=== PATIENT | female | born 1940 | race Two or more races ===

== ENCOUNTER 2017-12-09 09:08 | Day surgery (SDC) | payer OTHER ==
[~2017-12-09] VITALS: Ht 154.9 cm; Wt 52.6 kg
[~2017-12-09 09:08] MED LIST: ALBUAER3 IN; AMLO10TA2 PO; ASPI81TA27 PO; BUP75T PO; CLOP75TA28 PO; DOXY100C2 PO; HAL1T PO; LIDOCAINE HCL 2 %PF INJ 10ML AMP IJ ONE; LOSA50TA6 PO; METO-159 PO; MOME200A INH; MONT10TA23 PO
[2017-12-09] MEDS ORDERED: VANCOMYCIN 1GM/250ML 250 ML IV ONE (09:45)
[2017-12-09] MEDS ORDERED: MIDAZOLAM HCL 1MG/1ML-2 ML VIAL ONE (10:23)
[2017-12-09] MEDS ORDERED: fentaNYL CITRATE 100 MCG/2 ML VL ONE (10:23)
[2017-12-09] MEDS ORDERED: VANCOMYCIN HCL 1000 MG VL ONE (10:23)
[2017-12-09] MEDS ORDERED: BACITRACIN INJ 50000 UNIT VIAL ONE (10:24)
[2017-12-09] MEDS ORDERED: VANCOMYCIN 1GM/250ML 0 ML IV ONE (10:24)
[2017-12-09] MEDS ORDERED: DOXYCYCLINE 100 MG TAB/CAP PO ONE (11:30)
[2017-12-09] MEDS ORDERED: DOXYCYCLINE 100 MG TAB/CAP ONE (12:10)
== END 2017-12-09 12:30 | disposition home or self-care (01) ==
LOC: CATH 09:08
PROVIDERS: ATTEND Specialist
DX: I42.9 Cardiomyopathy, unspecified (principal); I50.9 Heart failure, unspecified; Z88.0 Allergy status to penicillin; I10 Essential (primary) hypertension; I25.2 Old myocardial infarction; J45.909 Unspecified asthma, uncomplicated
CPT/HCPCS: 33264; C1882; C1894; J1644; J2250; J3010; J3370; J7030; 99152

== ENCOUNTER 2018-05-09 18:34 | Emergency (ER) | payer OTHER ==
[~2018-05-09] VITALS: Ht 152.4 cm; Wt 54.4 kg
[~2018-05-09 18:34] MED LIST changes: -LIDOCAINE HCL 2 %PF INJ 10ML AMP IJ ONE
[2018-05-09] MEDS ORDERED: LET TOPICAL SOLN 5 ML TOP ONE (19:15)
[2018-05-09 19:32] VITALS: BP 157/69
[2018-05-09] MEDS ORDERED: LIDOCAINE W/ EPINEPHRINE 2% INJ 20ML VIAL ONE (19:43)
[2018-05-09] MEDS ORDERED: LIDOCAINE W/ EPINEPHRINE 2% INJ 20ML VIAL IJ ONE (20:15)
== END 2018-05-09 20:21 | disposition home or self-care (01) ==
LOC: ER 18:34
DX: S01.81XA Laceration without foreign body of other part of head, initial encounter (principal); L76.22 Postprocedural hemorrhage of skin and subcutaneous tissue following other procedure; Z88.0 Allergy status to penicillin; X58.XXXA Exposure to other specified factors, initial encounter; Y93.89 Activity, other specified; Y99.8 Other external cause status; Y92.89 Other specified places as the place of occurrence of the external cause
CPT/HCPCS: 12013; 99283; J3490

== ENCOUNTER 2019-03-27 10:36 | Inpatient (IN) | payer OTHER ==
[~2019-03-27] VITALS: Ht 154.9 cm; Wt 51.2 kg
[~2019-03-27 10:36] MED LIST changes: +AMLO10TA12 PO; -AMLO10TA2 PO; +LOSA-46 PO; -LOSA50TA6 PO
[2019-03-27 11:11] LABS: Basophils # (auto) 0.1 uL; Basophils % (auto) 0.9 % (0.0-2.0); Eosinophils # (auto) 0.2 uL; Eosinophils % (auto) 1.5 % (0.0-7.0); Hematocrit 40.8 % (36.0-46.0); Hemoglobin 13.8 g/dL (12.2-16.2); Lymphocytes # (auto) 1.6 uL; Lymphocytes % (auto) 14.8 % (10.0-50.0); Mean Corpuscular Hemoglobin 31.7 pg (28.0-32.0); Mean Corpuscular Hgb Conc. 33.9 g/dL (32.0-36.0); Mean Corpuscular Volume 93.6 fL (80.0-100.0); Monocytes # (auto) 0.9 uL; Neutrophils # (auto) 8.2 uL; Neutrophils % (auto) 74.8 % (37.0-80.0); Platelet Count (auto) 338 10^3/uL (140-450); Red Blood Cells 4.36 10^6/uL (4.0-5.20); Red Cell Distribution Width 13.4 % (11.8-14.3)
[2019-03-27] MEDS ORDERED: IPRATROPIUM BROM 0.5 MG/2.5ML INH SOL NEB ONE (11:30)
[2019-03-27] MEDS ORDERED: methylPREDNISolone SOD SUCC 125 MG/2 ML VL IV ONE (11:30)
[2019-03-27] MEDS ORDERED: ALBUTEROL SULF 2.5 MG/0.5ML(0.5%) NEB SOLN NEB ONE (11:30)
[2019-03-27 11:39] LABS: Alanine Aminotransferase 23 U/L (13-56); Albumin 3.2 g/dL (3.4-5.0); Anion Gap 7 (5-15); Aspartate Aminotransferase 17 U/L (15-37); Blood Urea Nitrogen 13 mg/dL (7-18); Calcium 9.2 mg/dL (8.5-10.1); Carbon Dioxide 26 mmol/L (21-32); Chloride 108 mmol/L (98-107); Glucose 118 mg/dL (74-106); Magnesium 2.3 mg/dL (1.6-2.6); Potassium 3.6 mmol/L (3.5-5.1); Sodium 141 mmol/L (136-145)
[2019-03-27 11:43] LABS: Alkaline Phosphatase 102 U/L (45-117); BUN/Creatinine Ratio 14.8; Bilirubin, Total 0.5 mg/dL (0.2-1.0); GFR African American 80 mL/min; GFR Non-African American 66 mL/min; Total Protein 7.6 g/dL (6.4-8.2)
[2019-03-27 15:55] LABS: INR 1.01 (0.9-1.15)
[2019-03-27] MEDS ORDERED: MORPHINE SULF INJ 2 MG/ML SYRINGE 1ML IV PRN ×2 (16:15)
[2019-03-27] MEDS ORDERED: ACETAMINOPHEN 325 MG TAB PO PRN (16:15)
[2019-03-27] MEDS ORDERED: NITROGLYCERIN 0.4 MG SL TAB SL PRN (16:15)
[2019-03-27] MEDS ORDERED: HYDROcodone-ACET 5/325MG TAB PO PRN (16:15)
[2019-03-27] MEDS ORDERED: ONDANSETRON HCL 4 MG/2 ML VIAL IV PRN (16:15)
[2019-03-27] MEDS ORDERED: ENOXAPARIN SOD 40 MG/0.4 ML SYRINGE SC ONE (17:30)
--- NOTE | 2019-03-27 20:39 | NUR ---
Opening shift note Patient in bed sleeping with eyes closed, non responsive to verbal stimuli. Patient's respiration even and unlabored, no non verbal cues to pain and discomfort. Will continue to monitor.
[2019-03-27 22:00] VITALS: BP 126/72
[2019-03-28 05:00] VITALS: BP 110/64
[2019-03-28 09:00] VITALS: BP 128/78
[2019-03-28] MEDS ORDERED: ENOXAPARIN SOD 40 MG/0.4 ML SYRINGE SC SCH (10:00)
[2019-03-28 13:00] VITALS: BP 119/71
--- NOTE | 2019-03-28 14:08 | NUR ---
I called [facility] [phone] and spoke with Dilma, she did receive the fax, her director is reviewing the clinical information, Dilma will give me a call back. I spoke with nurse Kandi who let me know that familly is requesting [facility]. Addendum: 03/28/19 at 1419 by Julia Lauren RN I spoke with [employer] Project Engineer Melissa who is aware that patient is requesting [facility], she will give auth once we have an accepting facility.
--- NOTE | 2019-03-28 15:40 | NUR ---
Patient will be going to [facility] room 304 bed 2-Dr Huma Perez accepting-nurse to call report to [phone]-CHOICE auth number for [employer] is [id number]-[email or web address] number for [employer] transportation [id number](phone number [phone]; fax number [phone])-[facility] transport to pickling operator patient at 1900-I called nurse Kandi and gave her this information as well as asking her to fax face sheet with auth number on it to [facility] per their request.
[2019-03-28 17:52] VITALS: BP 153/70
== END 2019-03-28 19:30 | DRG 536 ==
LOC: ER 10:38 → TELE 10:39 → TELE-WESTW 17:48
PROVIDERS: ADMIT Internal Medicine; ATTEND Internal Medicine
DX: S72.111A Displaced fracture of greater trochanter of right femur, initial encounter for closed fracture (principal); E44.1 Mild protein-calorie malnutrition; M16.11 Unilateral primary osteoarthritis, right hip; R29.6 Repeated falls; Z68.21 Body mass index [BMI] 21.0-21.9, adult; G30.9 Alzheimer's disease, unspecified; F02.80 Dementia in other diseases classified elsewhere, unspecified severity, without behavioral disturbance, psychotic disturbance, mood disturbance, and anxiety; I10 Essential (primary) hypertension
CPT/HCPCS: 36415; 71045; 73502; 73700; 80053; 83735; 84484; 85025; 85610; 86850; 86900; 86901; 93005; 93306; 94640; 96374; G0378

== ENCOUNTER 2020-04-17 12:59 | Inpatient (IN) | payer OTHER ==
[~2020-04-17] VITALS: Ht 154.9 cm; Wt 46.2 kg
[~2020-04-17 12:59] MED LIST changes: -AMLO10TA12 PO; +AMLO10TA13 PO; +ASPI-543 PO; -ASPI81TA27 PO; -LOSA-46 PO; +LOSA-69 PO
[2020-04-17] MEDS ORDERED: SODIUM CHLORIDE 0.9% 1,000 ML IVB ONE (13:29)
[2020-04-17 14:02] LABS: Basophils # (auto) 0.1 10 ^3/uL (0-0.2); Basophils % (auto) 0.6 % (0.0-2.0); Eosinophils # (auto) 0 10 ^3/uL (0-0.8); Eosinophils % (auto) 0.2 % (0.0-7.0); Hematocrit 41.1 % (36.0-46.0); Hemoglobin 13.7 g/dL (12.2-16.2); Lymphocytes # (auto) 1.2 10 ^3/uL (0.4-5.4); Lymphocytes % (auto) 9.8 % (10.0-50.0); Mean Corpuscular Hemoglobin 31.3 pg (28.0-32.0); Mean Corpuscular Hgb Conc. 33.4 g/dL (32.0-36.0); Mean Corpuscular Volume 93.5 fL (80.0-100.0); Monocytes % (auto) 8.8 % (0.0-12.0); Neutrophils # (auto) 9.6 10 ^3/uL (1.6-8.6); Neutrophils % (auto) 80.6 % (37.0-80.0); Nucleated Red Blood Cells % 0.1 %; Platelet Count (auto) 275 10^3/uL (140-450); Red Cell Distribution Width 13.6 % (11.8-14.3); White Blood Cell 11.9 10^3/uL (4.4-10.8)
[2020-04-17 14:17] LABS: INR 1.07 (0.9-1.15); Partial Thromboplastin Time 27.9 sec (23.64-32.05)
[2020-04-17 14:18] LABS: Albumin 2.8 g/dL (3.4-5.0); Calcium 7.9 mg/dL (8.5-10.1); Magnesium 1.8 mg/dL (1.6-2.6)
[2020-04-17 14:24] LABS: BUN/Creatinine Ratio 21.9; Bilirubin, Total 0.8 mg/dL (0.2-1.0); Total Protein 7.3 g/dL (6.4-8.2)
[2020-04-17 14:36] LABS: Potassium 2.7 mmol/L (3.5-5.1)
[2020-04-17] MEDS ORDERED: POTASSIUM CHL 20 Meq TABLET PO ONE (15:00)
[2020-04-17] MEDS ORDERED: MORPHINE SULF INJ 2 MG/ML SYRINGE 1ML IV ONE (15:00)
[2020-04-17] MEDS ORDERED: SODIUM CHLORIDE 0.9% 1,000 ML IV ONE (15:00)
[2020-04-17] MEDS ORDERED: ONDANSETRON HCL 4 MG/2 ML VIAL IV ONE (15:00)
[2020-04-17] MEDS ORDERED: MORPHINE SULF INJ 2 MG/ML SYRINGE 1ML IV PRN ×2 (16:00)
[2020-04-17] MEDS ORDERED: ACETAMINOPHEN 500 MG TAB PO PRN (16:00)
[2020-04-17] MEDS ORDERED: HYDROcodone-ACET 5/325MG TAB PO PRN (16:00)
[2020-04-17] MEDS ORDERED: SOD CHL 0.45% WITH 20MEQ KCL 1,000 ML IV ONE (16:00)
[2020-04-17] MEDS ORDERED: NITROGLYCERIN 0.4 MG SL TAB SL PRN (16:00)
[2020-04-17 16:04] LABS: Urine Bacteria NONE SEEN /hpf (None Seen); Urine Blood Negative /uL (Negative); Urine Hyaline Cast FEW /lpf (0 - 2); Urine Specific Gravity 1.009 (1.001-1.035); Urine WBC 1 /hpf (0 - 5)
[2020-04-17] MEDS ORDERED: HALOPERIDOL 1 MG TAB PO PRN (16:15)
[2020-04-17] MEDS ORDERED: ALBUTEROL SULF 2.5 MG/0.5ML(0.5%) NEB SOLN NEB PRN (16:15)
[2020-04-17 16:29] VITALS: BP 131/56
--- NOTE | 2020-04-17 18:40 | NUR ---
Respiratory note: PT SEEN AND ASSESSED FOR PRN MED NEB TX AT 1840. TREATMENT NOT INDICATED AT THIS TIME. PT NOT DISPLAYING ANY SIGNS OF DISTRESS. HR 102 RR 17 94% ON 2L NASAL CANNULA.
[2020-04-17] MEDS ORDERED: ETOMIDATE (2MG/ML) 20ML VIAL IV ONE (20:00)
[2020-04-17] MEDS: MOMETASONE FUROATE FORMOTEROL PO SCH (22:00)
--- NOTE | 2020-04-17 23:30 | NUR ---
Telemetry admit from ER BESSSTARLA admitted to Telemetry unit after SBAR received. Patient oriented to Nupur Salter RN primary RN, unit, room, bed, and unit policies regarding patient care and visiting hours. Patient now on continuous telemetry monitoring, tele box # [] and telemetry reading on arrival to unit is SR. Patient placed on bedside oxygen at 2 Lpm/NC, weighed by bedscale and encouraged to call if they need something. Bed in lowest position, bed alarm on, call light within reach. All questions and concerns addressed, patient verbalized understanding, will continue to monitor Note: []
[2020-04-18] VITALS (8 sets, daily range): BP systolic 120–141; BP diastolic 67–70
[2020-04-18] MEDS: MONTELUKAST SODIUM 10 MG TAB PO SCH ×2 (00:10→22:13)
--- NOTE | 2020-04-18 00:45 | NUR ---
Received a call from [place], patient's covid result is positive. NIKOLAI Tompkins made aware. Will page hospitalist
--- NOTE | 2020-04-18 01:14 | NUR ---
Transferred patient to Covid Unit Rm. 232 and gave report to RAMAN Malagon
--- NOTE | 2020-04-18 01:15 | NUR ---
arrived to room 246B via hospital bed. pt A&O4. respirations even nonlabored on 2Lnc.
--- NOTE | 2020-04-18 02:11 | NUR ---
Paged hospitalist, awaiting call back
--- NOTE | 2020-04-18 02:26 | NUR ---
Hospitalist Hui called back and updated on patient's Covid positive result. Per MD, to put the patient on Covid protocol. Called Covid unit and left a message to RAMAN Saenz
[2020-04-18] MEDS ORDERED: ACETAMINOPHEN 500 MG TAB PO PRN (02:30)
[2020-04-18] MEDS: DOXYCYCLINE 100 MG TAB/CAP PO SCH ×2 (05:31→08:53)
--- NOTE | 2020-04-18 06:29 | NUR ---
Called Dr. Dumas and updated on patient's status and positive covid result. No new order at this time
--- NOTE | 2020-04-18 07:08 | NUR ---
closing note pt resting in semi fowlers position with HOB at 30 degrees. respirations even and nonlabored on 2Lnc. sling in place at left arm. pt denies pain or discomfort at this time. bed in low locked position, call light within reach.
--- NOTE | 2020-04-18 07:20 | NUR ---
OPENING SHIFT NOTE ASSUMED CARE OF PATIENT FROM LONG GOODS DRIER RAMAN STERN. PATIENT IS AWAKE, ALERT, AND ORIENTED X2 (PERSON AND PLACE). WILL REORIENT PATIENT TO PLACE AND SITUATION. PATIENT HAS NO S/S OF DISTRESS/SOB OR PAIN. INSTRUCTED PATIENT ON POC, PATIENT VERBALIZED UNDERSTANDING. BED IS IN LOWEST POSITION WITH SIDE RAILS RAISED X2, BED WHEELS LOCKED, SHI IS HANGING BELOW BLADDER AND IS DRAINING YELLOW URINE, AND CALL LIGHT IS WITHIN REACH. WILL CONTINUE TO MONITOR
[2020-04-18] MEDS: ALBUTEROL SULF HFA 90MCG INH 200DOSE IN SCH ×3 (07:43→21:42)
[2020-04-18] MEDS: ZINC SULFATE 220mg CAP or TAB PO SCH (08:52)
[2020-04-18] MEDS: levoFLOXacin 500MG 100 ML IV SCH (08:52)
[2020-04-18] MEDS: LOSARTAN POTASSIUM 50 MG TAB PO SCH (08:53)
[2020-04-18] MEDS: ASCORBIC ACID 1,000 MG TAB PO SCH (08:53)
[2020-04-18] MEDS: buPROPion HCL 75 MG TAB PO SCH (08:53)
[2020-04-18] MEDS: amLODIPine BESYLATE 5 MG TAB PO SCH (08:54)
[2020-04-18] MEDS: ENOXAPARIN SOD 40 MG/0.4 ML SYRINGE SC SCH (08:57)
[2020-04-18] MEDS: MOMETASONE FUROATE FORMOTEROL PO SCH (10:00)
[2020-04-18 10:18] LABS: Basophils # (auto) 0 10 ^3/uL (0-0.2); Basophils % (auto) 0.3 % (0.0-2.0); Eosinophils # (auto) 0 10 ^3/uL (0-0.8); Eosinophils % (auto) 0.5 % (0.0-7.0); Hematocrit 32.5 % (36.0-46.0); Hemoglobin 10.4 g/dL (12.2-16.2); Lymphocytes # (auto) 0.7 10 ^3/uL (0.4-5.4); Lymphocytes % (auto) 10.1 % (10.0-50.0); Mean Corpuscular Hemoglobin 32.1 pg (28.0-32.0); Mean Corpuscular Hgb Conc. 32.1 g/dL (32.0-36.0); Mean Corpuscular Volume 100.1 fL (80.0-100.0); Monocytes # (auto) 0.8 10 ^3/uL (0-1.3); Monocytes % (auto) 10.4 % (0.0-12.0); Neutrophils # (auto) 5.7 10 ^3/uL (1.6-8.6); Neutrophils % (auto) 78.7 % (37.0-80.0); Nucleated Red Blood Cells % 0.1 %; Platelet Count (auto) 224 10^3/uL (140-450); Red Blood Cells 3.25 10^6/uL (4.0-5.20); Red Cell Distribution Width 14.5 % (11.8-14.3); White Blood Cell 7.2 10^3/uL (4.4-10.8)
[2020-04-18 11:22] LABS: INR 1.17 (0.9-1.15); Partial Thromboplastin Time 36.9 sec (23.64-32.05)
[2020-04-18 11:58] LABS: BUN/Creatinine Ratio 22.4; Calcium 6.9 mg/dL (8.5-10.1)
[2020-04-18 12:04] LABS: Potassium 2.9 mmol/L (3.5-5.1)
--- NOTE | 2020-04-18 12:25 | NUR ---
INFORMED MD MACY OF CRITICAL POTASSIUM OF 2.9. MD ORDERED POTASSIUM TO BE GIVEN IV AND PO. WILL FOLLOW THROUGH WITH ORDERS.
[2020-04-18] MEDS ORDERED: DexAMETHasone SOD PHOS 10MG/1ML VIAL INJ IV ONE (13:15)
[2020-04-18] MEDS ORDERED: POTASSIUM CHL 20 Meq TABLET PO ONE (14:15)
[2020-04-18] MEDS ORDERED: POTASSIUM CHL 20MEQ/100ML 100 ML IV ONE (14:15)
[2020-04-18] MEDS: MAGNESIUM SULFATE 1GM/100ML 100 ML IV SCH ×3 (18:09→22:10)
--- NOTE | 2020-04-18 18:30 | NUR ---
MD CAVAZOS AT BEDSIDE UPDATED MD ON PATIENT'S STATUS, MD IS AWARE AND ORDERED SOCIAL SERVICE CONSULT FOR HOME HEALTH, WALKER AND BEDSIDE COMMODE WILL FOLLOW THROUGH WITH ORDERS.
--- NOTE | 2020-04-18 19:13 | NUR ---
CLOSING SHIFT NOTE ENDORSED CARE TO DRUM SEALER RAMAN STERN. PATIENT HAS NO S/S OF DISTRESS/SOB OR PAIN AT THIS TIME.
--- NOTE | 2020-04-18 19:15 | NUR ---
opening note pt positioned in semi fowlers with HOB at 30 degrees. pt denies pain or discomfort. will continue to monitor. POC discussed. pt verbalized understanding. bed in low locked position, call light within reach.
--- NOTE | 2020-04-18 21:42 | NUR ---
RT NOTE PT WAS SEEN BY RT FOR MDI TX. PT TOLERATES WELL VIA SPACER. PT RINSED MOUTH WITH WATER POST MDI TX. HR 104, RR16, BS CLEAR/DIMINISHED, POX 95% ON 2L NASAL CANNULA. CONT ORDERED Addendum: 04/18/20 at 2259 by Marianela Ricketts RT Amended: Links added.
[2020-04-18] MEDS: MAGNESIUM OXIDE 400 MG TAB PO SCH (22:13)
[2020-04-19 05:00] VITALS: BP 137/74
[2020-04-19 05:24] LABS: Basophils # (auto) 0 10 ^3/uL (0-0.2); Basophils % (auto) 0.2 % (0.0-2.0); Eosinophils # (auto) 0 10 ^3/uL (0-0.8); Hematocrit 37.3 % (36.0-46.0); Hemoglobin 12.7 g/dL (12.2-16.2); Lymphocytes # (auto) 0.4 10 ^3/uL (0.4-5.4); Mean Corpuscular Hemoglobin 31.7 pg (28.0-32.0); Mean Corpuscular Hgb Conc. 34.2 g/dL (32.0-36.0); Mean Corpuscular Volume 92.8 fL (80.0-100.0); Monocytes # (auto) 0.4 10 ^3/uL (0-1.3); Monocytes % (auto) 4.8 % (0.0-12.0); Neutrophils # (auto) 7.5 10 ^3/uL (1.6-8.6); Nucleated Red Blood Cells % 0.1 %; Platelet Count (auto) 308 10^3/uL (140-450); Red Blood Cells 4.02 10^6/uL (4.0-5.20); Red Cell Distribution Width 13.6 % (11.8-14.3); White Blood Cell 8.4 10^3/uL (4.4-10.8)
[2020-04-19 05:41] LABS: Albumin 2.6 g/dL (3.4-5.0); Calcium 7.9 mg/dL (8.5-10.1); Potassium 4.3 mmol/L (3.5-5.1)
[2020-04-19 05:50] LABS: BUN/Creatinine Ratio 26.3; Bilirubin, Total 0.8 mg/dL (0.2-1.0); CRP High Sensitivity 6.61 mg/dL (< 0.3)
[2020-04-19] MEDS: ALBUTEROL SULF HFA 90MCG INH 200DOSE IN SCH ×2 (06:59→14:33)
--- NOTE | 2020-04-19 07:35 | NUR ---
closing note pt resting in semi fowlers with HOB at 30 degrees. no s/s of pain or distress. pt denies pain. respirations even and nonlabored on 2Lnc. bed in low locked position, call light within reach.
--- NOTE | 2020-04-19 07:40 | NUR ---
opening shift note Assumed care of patient from NOC RN. Patient is AOX1-2 no s/s of distress noted. Bed is in lowest locked position, side rails up x3, and call light is within reach. Updated patient on plan of care and patient verbalized understanding, however reinforcement is needed. Will continue to monitor q1hr and PRN.
[2020-04-19 09:00] VITALS: BP 156/88
[2020-04-19] MEDS ORDERED: DexAMETHasone SOD PHOS 10MG/1ML VIAL INJ IV SCH (10:00)
[2020-04-19] MEDS: MOMETASONE FUROATE FORMOTEROL PO SCH (10:00)
[2020-04-19] MEDS: levoFLOXacin 500MG 100 ML IV SCH (11:03)
[2020-04-19] MEDS: ZINC SULFATE 220mg CAP or TAB PO SCH (11:04)
[2020-04-19] MEDS: ASCORBIC ACID 1,000 MG TAB PO SCH (11:05)
[2020-04-19] MEDS: MAGNESIUM OXIDE 400 MG TAB PO SCH (11:05)
[2020-04-19] MEDS: ENOXAPARIN SOD 40 MG/0.4 ML SYRINGE SC SCH (11:06)
[2020-04-19] MEDS: buPROPion HCL 75 MG TAB PO SCH (11:06)
[2020-04-19] MEDS: LOSARTAN POTASSIUM 50 MG TAB PO SCH (11:07)
[2020-04-19] MEDS: DOXYCYCLINE 100 MG TAB/CAP PO SCH (11:07)
[2020-04-19] MEDS: amLODIPine BESYLATE 5 MG TAB PO SCH (11:07)
--- NOTE | 2020-04-19 12:00 | NUR ---
Received call from MD Per Dr. Brar patient is to be D/C'd home with home health and home o2 2L, will notify social and political studies professor. Per MD prescriptions have been sent to [facility] pharmacy, will notify patient and patient family about prescriptions. Will continue care.
[2020-04-19] MEDS ORDERED: PRED20TA2 PO (12:03)
[2020-04-19] MEDS ORDERED: DOXY100C2 PO (12:03)
[2020-04-19] MEDS ORDERED: ALBUAER3 IN (12:03)
[2020-04-19] MEDS ORDERED: FAMO20TA10 PO (12:03)
--- NOTE | 2020-04-19 12:16 | NUR ---
Assessment Patient is an 80-year-old female with Alzheimers dementia. Assessment was completed with patient daughter Alina . Per Alina prior to admission patient lived home with her and functioned with assistance. Per Alina patient PCP is Chris Borges. Per she helps patient with her ADLs. Advised Alina there is a social service consult for bedside commode, walker and home health safety evaluation. Per Alina patient has a wheel chair, walker, and a quad cane. Per Alina patient does not have home oxygen. Informed Alina clinical information will be faxed to contracted home health agency and for the medical equipment. Per Alina patient will return home to her prior living arrangements post discharge and she will transport patient home. Informed Alina she has the right to participate in all discharge planning. Alina verbalized understanding and agreed to discharge plan. Faxed clinical information to requesting to deliver bedside commode to home. Faxed clinical information to [facility]. Contact PALAK Guido regarding home health order and medical equipment. Addendum: 04/19/20 at 1219 by BINH ELLIS Amended: Links added.
--- NOTE | 2020-04-19 12:55 | NUR ---
Paged social work specialist Placed page to social work specialist Sada, awaiting call back.
[2020-04-19 13:00] VITALS: BP 135/98
--- NOTE | 2020-04-19 13:30 | NUR ---
received call back from social work instructor Alisa Tomlin on the change of home health orders.
--- NOTE | 2020-04-19 13:35 | NUR ---
Called family Updated patients daughter on discharge plan. Alina verbalized understanding.
--- NOTE | 2020-04-19 14:38 | NUR ---
Nutrition Assessment Notes Please refer to link for full assessment notes. [employer] needs: 9831-7870 kcals (23-25 kcal/kgBW) Est Protein needs: 46-51 gms/day (1.0-1.1 gm/kgBW) Will continue to monitor and reassess prn. Addendum: 04/19/20 at [address] Amended: Links added.
[2020-04-19 15:27] VITALS: BP 127/71
--- NOTE | 2020-04-19 16:13 | NUR ---
called MD Called Dr. Brar regarding D/C. Awaiting call back.
--- NOTE | 2020-04-19 16:34 | NUR ---
D/C Planning Received a call from Key with [facility] regarding bedside commode and walker. Per Key with [facility] they provided a walker and bedside commode to patient a year ago and they can only provide new equipment every 5 years. Received a call from [facility] advising me they can accept patient and will see within 24-48hrs upon d/c day. Regarding order for home oxygen at 2 l/min. faxed clinical information to requesting to be deliver to [facility]. Per Qian with [facility] portable oxygen will be deliver to [facility] between 16:30-18:00 and concentrate oxygen to home. Informed RAMAN Tolentino.
[2020-04-19 17:00] VITALS: BP 127/71
--- NOTE | 2020-04-19 17:00 | NUR ---
Cunha catheter dc'd Order to discontinue cunha catheter. Cunha dc'd with clean technique following deflation of balloon. Patient tolerated well with no complaints of pain. Continue care.
--- NOTE | 2020-04-19 18:00 | NUR ---
Spoke with family Spoke with patients family regarding personal wheel chair. Per Daughter Alina the patient was brought to the emergency by other daughter Carmen via personal wheel chair and taken in for treatment in her wheel chair. Explained to Alina that wheel chair is not at bedside, and explained to Alina to contact the ED and inquire about wheel chair.
--- NOTE | 2020-04-19 18:15 | NUR ---
Spoke with family Spoke with patients daughter Carmen regarding personal wheel chair. Carmen stated that she does not have the wheel chair in her possession, stated "It went missing in the emergency room." She stated that she spoke to the ED staff and wheelchair is not in the ED. Informed her that wheel chair is not at bedside or on the east telemetry floor. Transferred her to charge nurse Noel for further help.
--- NOTE | 2020-04-19 18:20 | NUR ---
Called ED Called the emergency rooms front nurses station and back station, neither station has the wheelchair. Per secretary receptionist wheel chair could possibly be in EVS storage and cannot be accessed until tomorrow when manager editorial is back. Will notify charge nurse.
--- NOTE | 2020-04-19 18:30 | NUR ---
Spoke with charge nurse Spoke with charge nurse Noel, informed him about patients wheel chair and the possibility of it being in EVS storage. Addendum: 04/19/20 at 1852 by RADHA CELESTIN RN Informed Noel that there is no personal belongings sheet in chart from admission.
--- NOTE | 2020-04-19 19:30 | NUR ---
Discharge note Discharge instructions given as ordered. Encourage to follow up with PMD as instructed. All questions and concerns addressed. Patient verbalized understanding. New medications from [facility] picked up and sent with patient. IV removed with catheter intact, pressure dressing applied, cunha catheter removed. Telemetry unit returned to ICU. Patient taken to vehicle via wheelchair with all personal belongings and home o2 at 2 liters, accompanied by staff member. No distress noted at time of departure.
== END 2020-04-20 00:30 | disposition home health service (06) | DRG 177 ==
LOC: ER 12:59 → TELE 13:00 → TELE-WESTW 23:06 → TELE-EAST 04-18 02:56
PROVIDERS: ADMIT Hospitalist; ATTEND Hospitalist
DX: U07.1 COVID-19 (principal); G93.41 Metabolic encephalopathy; S42.302A Unspecified fracture of shaft of humerus, left arm, initial encounter for closed fracture; G30.9 Alzheimer's disease, unspecified; I25.10 Atherosclerotic heart disease of native coronary artery without angina pectoris; I11.9 Hypertensive heart disease without heart failure; E87.6 Hypokalemia; W18.39XA Other fall on same level, initial encounter; F02.80 Dementia in other diseases classified elsewhere, unspecified severity, without behavioral disturbance, psychotic disturbance, mood disturbance, and anxiety; E78.5 Hyperlipidemia, unspecified; J44.9 Chronic obstructive pulmonary disease, unspecified; Z82.49 Family history of ischemic heart disease and other diseases of the circulatory system; Z82.5 Family history of asthma and other chronic lower respiratory diseases; Z95.0 Presence of cardiac pacemaker; Y93.89 Activity, other specified; Y92.89 Other specified places as the place of occurrence of the external cause; Y99.8 Other external cause status
CPT/HCPCS: 36415; 70450; 71045; 72125; 73060; 80048; 80053; 81001; 82728; 83735; 83880; 84484; 85025; 85379; 85610; 85730; 86141; 86850; 86900; 86901; 87086; 93005; 93306; 94640; 97116; 97163; 99152; 99291; G0378; J1100; J1956; J2405; J3480